=== PATIENT | male | born 1950 | race Caucasian/White ===

== ENCOUNTER 2020-11-10 15:12 | Emergency (ER) | payer MEDICARE ==
[~2020-11-10] VITALS: Ht 185.4 cm; Wt 110.6 kg
[~2020-11-10 15:12] MED LIST: ALBU2.5V4 NEB; AMLO-250 PO; ASCO500C17 PO; ASPI325T32 PO; ATOR40TA70 PO; BUDE10.2 INH; CANA300T PO; CYAN500T8 PO; FAMO20TA5 PO; FLUT9.9S NS; FURO20TA4 PO; INSU100V SC; INSU100V5 SC; LOSA100T57 PO; METF750T45 PO; MTP25TSR PO; POTA99TA21 PO
[2020-11-10] MEDS ORDERED: ISOS30TA82 (15:39)
[2020-11-10] MEDS ORDERED: DAPA10TA (15:39)
[2020-11-10] MEDS ORDERED: ACHD5005 PO ×2 (15:49→16:26)
[2020-11-10] MEDS ORDERED: CEPH500T PO ×2 (15:49→16:26)
--- NOTE | 2020-11-10 16:26 | ED Upper Extremity ---
General Chief Complaint: Laceration Stated Complaint: LEFT HAND LACERATION History of Present Illness Date Seen by Provider: Nov 10, 2020 Time Seen by Provider: 15:26 Initial Comments 70-year-old male presents with injury to his left index finger prior to arrival. States he pinched it in a bassett boat folding chair. Moderate bleeding, stopped on arrival. Moderate pain, but tolerable and better when he raises it. No other injury or complaint. Allergies and Home Medications Allergies Coded Allergies: No Known Drug Allergies (Unverified , 11/10/20) Home Medications Cephalexin 500 Mg Tablet, 500 MG PO TID Prescribed by: JANI CONTRERAS on 11/10/20 162 Hydrocodone/Acetaminophen 1 Each Tablet, 1 EACH PO Q4H Prescribed by: JANI CONTRERAS on 11/10/20 162 Patient Home Medication List Home Medication List Reviewed: Yes Review of Systems Constitutional: No fever, No malaise, No weakness Respiratory: no symptoms reported Cardiovascular: no symptoms reported Musculoskeletal: other (partial amputation left index finger) Skin: other (as above) Past Bsdsamq-Fbpzuo-Impbzw Hx Past Med/Social Hx: Reviewed Nursing Past Med/Soc Hx Physical Exam Vital Signs Vital Signs - First Documented 11/10/20 15:23 Temp 36.6 Pulse 96 Resp 18 B/P (MAP) 154/92 (112) Pulse Ox 96 O2 Delivery Room Air Capillary Refill : Height, Weight, BMI Height: '" Weight: lbs. oz. kg; BMI Method: General Appearance: WD/WN, no apparent distress Hand: laceration (complete amputation distal tip of left index finger through mid nail bed. Nail completely avulsed. + hemostais) Progress/Results/Core Measures Results/Orders My Orders Orders - JANI CONTRERAS DO Cephalexin Capsule (Keflex Capsule) (11/10/20 17:15) Hydrocodone/Apap 5/325 Tablet (Lortab 5 (11/10/20 17:15) Medications Given in ED Current Medications Medications Dose Ordered Sig/Layo Route Start Time Stop Time Status Last Admin Dose Admin Acetaminophen/ Hydrocodone Bitart 1 ea ONCE ONCE PO 11/10/20 17:15 11/10/20 17:16 DC 11/10/20 17:15 1 EA Cephalexin HCl 500 mg ONCE ONCE PO 11/10/20 17:15 11/10/20 17:16 DC 11/10/20 17:15 500 MG Vital Signs/I&O 11/10/20 11/10/20 15:23 16:30 Temp 36.6 36.6 Pulse 96 96 Resp 18 18 B/P (MAP) 154/92 (112) 154/92 (112) Pulse Ox 96 96 O2 Delivery Room Air Progress Progress Note : Progress Note Offered patient a digital block to alleviate pain, he declined and states it is not that bad. Discussed my conversation with the general surgeon, who stated that surgical repair was not indicated and that this would heal in time and the tissue would granulate in. Discussed wound care, watching for signs of infection and follow-up with his primary doctor in a few days for reevaluation. Advised to keep the hand clean and covered to avoid any unnecessary contamination. Patient expresses understanding and all of his immediate concerns were taken care of or discussed. Diagnostic Imaging Diagonstic Imaging: Xray Comments avulsion of soft tissue distal left index finger, sparing tuft Departure Communication (Admissions) called operations label clerk surgeon, Dr Lewis. He advises wet to dry dressing changes and basic wound care watching for sx of infection. No surgical repair needed. Impression Primary Impression: Traumatic amputation of fingertip Qualified Codes: S68.119A - Complete traumatic metacarpophalangeal amputation of unspecified finger, initial encounter Disposition: 01 HOME, SELF-CARE Condition: Improved Departure-Patient Inst. Decision time for Depature: 16:24 Referrals: NO,LOCAL PHYSICIAN (PCP/Family) Primary Care Physician Patient Instructions: Amputation of the Finger or Fingertip (DC), How to Change a Wet to Dry Dressing Add. Discharge Instructions: follow up with your Primary Doctor in 3 days for a wound check All discharge instructions reviewed with patient and/or family. Voiced understanding. Scripts Hydrocodone/Acetaminophen (Hydrocodone-Acetamin 5-325 mg) 1 Each Tablet 1 EACH PO Q4H for Abdominal Pain, #10 TAB Prov: JANI CONTRERAS DO 11/10/20 Cephalexin (Cephalexin) 500 Mg Tablet 500 MG PO TID, #21 TAB 0 Refills Prov: KARISTJANI MORRISON DO 11/10/20 ROLOVESTJANI MORRISON DO Nov 10, 2020 16:26
[2020-11-10 16:30] VITALS: BP 154/92
[2020-11-10] MEDS ORDERED: HYDROcodone/APAP 5 MG/325 MG (LORTAB) TAB PO ONE (17:15)
[2020-11-10] MEDS ORDERED: CEPHALEXIN 250 MG (KEFLEX) CAP PO ONE (17:15)
== END 2020-11-10 16:30 ==
LOC: ER FS 16:08
DX: S68.111A Complete traumatic metacarpophalangeal amputation of left index finger, initial encounter (principal); W23.1XXA Caught, crushed, jammed, or pinched between stationary objects, initial encounter

== ENCOUNTER 2022-12-06 14:00 | Emergency (ER) | payer MEDICARE ==
[~2022-12-06 14:00] MED LIST changes: +ACHD5005 PO; +CEPH500T PO; +DAPA10TA; +ISOS30TA82; -LOSA100T57 PO; +LOSA100T58 PO; -POTA99TA21 PO; +POTA99TA26 PO
[2022-12-06 14:06] VITALS: BP 156/85
--- NOTE | 2022-12-06 14:07 | ED Upper Extremity ---
General Chief Complaint: Laceration Stated Complaint: RT ARM LAC Source: patient Exam Limitations: no limitations History of Present Illness Date Seen by Provider: Dec 06, 2022 Time Seen by Provider: 14:01 Initial Comments 72-year-old male coming in due to right elbow laceration. He tripped, and landed his right arm on a picnic table forming laceration to his right elbow. This occurred shortly prior to arrival. Did not hit his head, did not pass out, no neck or back pain. Has been ambulatory since the incident. Does not take any blood thinners. Allergies and Home Medications Allergies Coded Allergies: pioglitazone (Verified Allergy, Unknown, cough, 11/13/20) Patient Home Medication List Home Medication List Reviewed: Yes Albuterol Sulfate (Albuterol Sulfate) 2.5 Mg/3 Ml Vial.neb, 3 ML NEB Q6H PRN for SHORTNESS OF BREATH, (Reported) Entered as Reported by: CARMEL CARRILLO on 02/16/20 1523 Amlodipine Besylate (Amlodipine Besylate) 5 Mg Tablet, 5 MG PO HS, (Reported) Entered as Reported by: CARMEL CARRILLO on 02/16/20 1523 Ascorbic Acid (Vitamin C) 500 Mg Capsule, 500 MG PO DAILY, (Reported) Entered as Reported by: SUNDAR MENENDEZ on 02/17/20 1153 Aspirin (Aspirin EC) 325 Mg Tablet.dr, 162.5 MG PO DAILY, (Reported) Entered as Reported by: SUNDAR MENENDEZ on 02/17/20 1153 Atorvastatin Calcium (Atorvastatin Calcium) 40 Mg Tablet, 40 MG PO HS, (Repo rted) Entered as Reported by: CARMEL CARRILLO on 02/16/20 1523 Budesonide/Formoterol Fumarate (Symbicort 160-4.5 Mcg Inhaler) 10.2 Gm Hfa.aer.ad, 2 PUFF INH BID, (Reported) Entered as Reported by: CARMEL CARRILLO on 02/16/20 1523 Canagliflozin (Invokana) 300 Mg Tablet, 300 MG PO DAILY, (Reported) Entered as Reported by: CARMEL CARRILLO on 02/16/20 1523 Cephalexin (Cephalexin) 500 Mg Tablet, 500 MG PO TID Prescribed by: JANI CONTRERAS on 11/10/20 1549 Cephalexin (Cephalexin) 500 Mg Tablet, 500 MG PO TID Prescribed by: JANI CONTRERAS on 11/10/20 162 Cyanocobalamin (Vitamin B-12) (Vitamin B-12) 500 Mcg Tablet, 500 MCG PO DAILY, (Reported) Entered as Reported by: SUNDAR MENENDEZ on 02/17/20 115 Dapagliflozin Propanediol (Farxiga) 10 Mg Tablet, (Reported) Entered as Reported by: MARIANN STEVEN on 11/10/20 153 Famotidine (Famotidine) 20 Mg Tablet, 20 MG PO DAILY PRN for HEARTBURN, (Reported) Entered as Reported by: SUNDAR MENENDEZ on 02/17/20 115 Fluticasone Propionate (Flonase Allergy Relief) 9.9 Ml Farrar.susp, 1 SPRAY NS DAILY PRN for CONGESTION, (Reported) Entered as Reported by: SUNDAR MENENDEZ on 02/17/20 115 Furosemide (Furosemide) 20 Mg Tablet, 20-40 MG PO DAILY, (Reported) Entered as Reported by: CARMEL CARRILLO on 02/16/20 152 Hydrocodone/Acetaminophen (Hydrocodone-Acetamin 5-325 mg) 1 Each Tablet, 1 EACH PO Q4H Prescribed by: JANI CONTRERAS on 11/10/20 154 Hydrocodone/Acetaminophen (Hydrocodone-Acetamin 5-325 mg) 1 Each Tablet, 1 EACH PO Q4H Prescribed by: JANI CONTRERAS on 11/10/20 162 Insulin Determir (Levemir) 1,000 Units/10 Ml Soln, 40 UNITS SC DAILY, (Reported) Entered as Reported by: CARMEL CARRILLO on 02/16/20 152 Insulin Lispro (Humalog) 100 Unit/1 Ml Vial, 15 UNIT SC AC, (Reported) Entered as Reported by: CARMEL CARRILLO on 02/16/20 152 Isosorbide Mononitrate (Isosorbide Mononitrate ER) 30 Mg Tab.er.24h, (Reported) Entered as Reported by: MARIANN STEVEN on 11/10/20 153 Losartan Potassium (Losartan Potassium) 100 Mg Tablet, 100 MG PO DAILY, (Reported) Entered as Reported by: CARMEL CARRILLO on 02/16/20 152 Metformin HCl (Metformin HCl ER) 750 Mg Tab.er.24h, 1,500 MG PO DAILY, (Repor tena) Entered as Reported by: CARMEL CARRILLO on 02/16/20 1523 Metoprolol Succinate (Metoprolol Succinate) 25 Mg Tab.er.24h, 25 MG PO HS, (Reported) Entered as Reported by: CARMEL CARRILLO on 02/16/20 1523 Potassium Gluconate (Potassium) 99 Mg Tablet, 99 MG PO DAILY PRN for CRAMPS, (Reported) Entered as Reported by: SUNDAR MENENDEZ on 02/17/20 1153 Review of Systems Constitutional: No fever EENTM: no symptoms reported Respiratory: no symptoms reported Cardiovascular: no symptoms reported Gastrointestinal: no symptoms reported Genitourinary: no symptoms reported Musculoskeletal: no symptoms reported Skin: see HPI Psychiatric/Neurological: No Symptoms Reported Past Aqpsqiu-Othijq-Xquhzz Hx Patient Social History Substance use?: No Immunizations Up To Date Tetanus Booster (TDap): Unknown Seasonal Allergies Seasonal Allergies: No Past Medical History 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 oz. kg; 32.00 BMI Method: General Appearance: WD/WN, no apparent distress HEENT: PERRL/EOMI, normal ENT inspection, pharynx normal Neck: non-tender, full range of motion, supple, normal inspection Cardiovascular: regular rate, rhythm, no edema, no murmur Respiratory: chest non-tender, lungs clear, normal breath sounds, no respiratory distress, no accessory muscle use Gastrointestinal: normal bowel sounds, non tender, soft Back: normal inspection, no CVA tenderness, no vertebral tenderness Shoulder: normal inspection, non-tender, no evidence of injury, normal ROM Elbow/Forearm: Right (Right proximal forearm with 10 cm laceration in the subcutaneous in depth and irregular shape) Wrist: Yes normal inspection, Yes non-tender, Yes no evidence of injury, Yes normal ROM Hand: normal inspection, non-tender, no evidence of injury, normal ROM Neurologic/Tendon: normal sensation, normal motor functions, normal tendon functions Neurologic/Psychiatric: no motor/sensory deficits, alert, normal mood/affect Skin: normal color, warm/dry Procedures/Interventions Wound Location: Upper Extremities Other Wound Location right proximal forearm Wound's Depth, Shape: sub Q Wound Explored: clean Irrigated w/ Saline (ccs): 500 Anesthesia: Lidocaine w/ Epi Volume Anesthetic (ccs): 8 Suture: Ethlion Suture Size: 4-0 Number of Sutures: 10 Progress 1 simple interrupted suture used on the distal end of the wound, the wound was fairly high tension, so switched over to doing horizontal mattress sutures. 9 of these were used. Progress/Results/Core Measures Results/Orders My Orders Orders - RITU FISHER MD Elbow 3 View Right (12/06/22 14:07) Vital Signs/I&O 12/06/22 14:06 Temp 36.1 Pulse 82 Resp 16 B/P (MAP) 156/85 (108) Pulse Ox 96 O2 Delivery Room Air Progress Progress Note : Progress Note 72-year-old male presenting due to an elbow laceration. ABCs were intact vitals were stable on presentation. Physical exam with a right elbow laceration that is subcutaneous, does not go into the joint space. His tetanus is up-to-date. X-ray ordered and interpreted by me showing no foreign body, no fracture. The area was cleaned, numbed with lidocaine, and closed with nonabsorbable suture. 1 simple interrupted suture was used on the distal end, at that point, the wound appeared to have too much tension, so 9 horizontal mattress sutures were used to finish it. Patient tolerated the procedure well. I believe he stable for disc harge with outpatient follow-up. He was sent home with strict return precautions. Diagnostic Imaging Diagonstic Imaging: Xray (elbow) Departure Impression Primary Impression: Elbow laceration Qualified Codes: S51.011A - Laceration without foreign body of right elbow, initial encounter Disposition: HOME, SELF-CARE Condition: Stable Departure-Patient Inst. Decision time for Depature: 15:10 Referrals: SONY ARNOLD MD (PCP/Family) Primary Care Physician Patient Instructions: Laceration Repair With Stitches ED Add. Discharge Instructions: The stitches need to come out in roughly 10 to 14 days. You can come back to the ER for that. We would also want to be seen by doctor sooner if you notice any redness spreading or unusual drainage that would be concerning for an infection. It likely will continue to bleed a small amount for the next day or so. Take Tylenol as needed for pain. Keep the area dry, do not submerge it in any type of water. After 24 hours, water can run over it briefly in the shower, but do not scrub it. You can put bacitracin ointment or petroleum on it while the stitches are there. Scripts Cephalexin (Cephalexin) 500 Mg Tablet 500 MG PO QID for 7 Days, #28 TAB Prov: RITU FISHER MD 12/06/22 RITU FISHER MD Dec 06, 2022 14:07
--- NOTE | 2022-12-06 14:47 | Diagnostic Imaging Report ---
Indication: Fall, pain. Findings: 3 views of the right elbow showed no displaced fat pad. There is advanced arthritis. 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 Impression: Arthritis but no fracture or acute injury identified. Dictated by: Dictated on workstation # [id number]
[2022-12-06] MEDS ORDERED: CEPH500T PO (15:07)
== END 2022-12-06 15:12 | disposition home or self-care (01) ==
LOC: EDUNIT# 14:00 → ER FS 14:01
DX: S51.011A Laceration without foreign body of right elbow, initial encounter (principal); W22.03XA Walked into furniture, initial encounter
CPT/HCPCS: 12042; 73080

== ENCOUNTER 2022-12-20 13:54 | Emergency (ER) | payer MEDICARE ==
[~2022-12-20] VITALS: Ht 182.9 cm; Wt 106.6 kg
[2022-12-20 13:57] VITALS: BP 142/83
== END 2022-12-20 14:07 | disposition home or self-care (01) ==
LOC: EDUNIT# 13:54 → ER FS 13:55
DX: Z48.02 Encounter for removal of sutures (principal); Z28.310 Unvaccinated for COVID-19